=== PATIENT | female | born 1970 | race Caucasian/White ===

== ENCOUNTER 2018-07-01 08:10 | Emergency (ER) | payer OTHER ==
[~2018-07-01] VITALS: Ht 170.2 cm; Wt 68.2 kg
[~2018-07-01 08:10] MED LIST: ACETAMINOPHEN325 MG PO; ALEVE220 MG PO; NORCO 7.5/325 T1 TA1 PO; NYSTATIN ORAL SU5 ML PO
[2018-07-01 08:17] VITALS: Ht 170.2 cm; Wt 68.2 kg
[2018-07-01 08:38] LABS: BASOPHILS 0.1 % (0-2); EOSINOPHILS 0.6 % (0-7); HEMATOCRIT 41.8 % (36.0-48.0); HEMOGLOBIN 14.4 g/dL (12-16); IMMATURE GRANULOCYTES 0.1 % (0-5); LYMPHOCYTES 16.3 % (15-50); MCH 30.2 pg (26.0-34.0); MCHC 34.4 g/dL (31.0-37.0); MCV 87.6 fL (80.0-100.0); MONOCYTES 4.4 % (2-11); NEUTROPHILS 78.5 % (40-80); RBC 4.77 10x6/uL (4.00-5.40); RDW 12.9 % (11.5-14.5); WBC 8.4 10x3/uL (4.8-10.8)
[2018-07-01 09:00] LABS: APPEARANCE HAZY (CLEAR); COLOR YELLOW (YELLOW); SPECIFIC GRAVITY 1.005 (1.005-1.020)
[2018-07-01 09:01] LABS: AMORPHOUS SEDIMENT <1+ /lpf (NONE SEEN); BACTERIA MODERATE /hpf (NONE SEEN); BILIRUBIN NEGATIVE (NEGATIVE); GLUCOSE NEGATIVE (NEGATIVE); GRANULAR CAST RARE /lpf (NONE SEEN); KETONE NEGATIVE (NEGATIVE); MUCUS <1+ /lpf (NONE SEEN); NITRITE NEGATIVE (NEGATIVE); PROTEIN NEGATIVE (NEGATIVE); RED CELLS - URINE 25-50 /hpf (0-5); UROBILINOGEN NORMAL (NORMAL); WHITE CELLS - URINE 0-5 /hpf (0-5)
[2018-07-01 09:02] LABS: HCG URINE NEGATIVE (NEGATIVE)
[2018-07-01 09:02] LABS: PLATELET COUNT 237 10x3/uL (130-400)
[2018-07-01 09:03] LABS: ALBUMIN 4.1 g/dL (3.4-5.0); ALKALINE PHOSPHATASE 45 U/L (46-116); ALT (SGPT) 96 U/L (10-68); BILIRUBIN - TOTAL 1.03 mg/dL (0.2-1.3); CALC OSMOLALITY 279 mosm/kg (275-300); CALCIUM 9.5 mg/dL (8.5-10.1); CARBON DIOXIDE 21.5 mmol/L (21.0-32.0); CHLORIDE - SERUM 104 mmol/L (98-107); CREATININE - SERUM 0.9 mg/dL (0.6-1.3); GLUCOSE 109 mg/dL (74-106); PROTEIN - SERUM 8.1 g/dL (6.4-8.2); SODIUM 139 mmol/L (136-145); UREA NITROGEN 14 mg/dL (7-18); eGFR NON AFRICAN AMERICAN 71 mL/min (90-120)
[2018-07-01 09:10] LABS: POTASSIUM - SERUM 4.6 mmol/L (3.5-5.1)
[2018-07-01 09:23] LABS: AMYLASE - SERUM 41 U/L (25-115); LIPASE 128 U/L (73-393); TROPONIN-I < 0.017 ng/mL (0.000-0.060)
[2018-07-01] MEDS ORDERED: FLOMAX0.4 MG PO (10:28)
[2018-07-01] MEDS ORDERED: ZOFRAN4 MG PO (10:28)
[2018-07-01] MEDS ORDERED: HYDROCODON-ACE1 EAC7 PO (10:28)
[2018-07-01 12:20] VITALS: BP 103/62
== END 2018-07-01 12:21 | disposition home or self-care (01) ==
LOC: D.ER 08:10
PROVIDERS: Family Medicine
DX: N20.1 Calculus of ureter (principal); R19.7 Diarrhea, unspecified; R35.0 Frequency of micturition